=== PATIENT | female | born 1995 | race Caucasian/White ===

== ENCOUNTER 2017-05-10 13:08 | Emergency (ER) | payer MEDICAID ==
[~2017-05-10] VITALS: Ht 165.1 cm; Wt 63.0 kg
[2017-05-10] MEDS ORDERED: KETOROLAC 30MG/ML VIAL IV ONE (13:45)
[2017-05-10] MEDS ORDERED: SODIUM CHLORIDE 0.9% 1,000 ML IV ONE (13:45)
[2017-05-10] MEDS ORDERED: METOCLOPRAMIDE HCL 10MG/2ML VIAL IV ONE (13:45)
[2017-05-10] MEDS ORDERED: DIPHENHYDRAMINE 50MG/ML VIAL IV ONE (13:45)
[2017-05-10 15:51] LABS: CLARITY URINE CLOUDY (CLEAR); COLOR URINE YELLOW (YELLOW); GLUCOSE URINE NEGATIVE (NEGATIVE); KETONES URINE NEGATIVE (NEGATIVE); LEUKOCYTE ESTERASE URINE 1+ (NEGATIVE); NITRITE URINE NEGATIVE (NEGATIVE); OCCULT BLOOD URINE NEGATIVE (NEGATIVE); PH URINE 7.5 (4.5-8.0); PROTEIN URINE NEGATIVE (NEGATIVE); SPECIFIC GRAVITY URINE 1.029 (1.005-1.030)
[2017-05-10 15:53] VITALS: BP 108/62
== END 2017-05-10 16:17 | disposition home or self-care (01) ==
LOC: ER 13:35
DX: R51 Headache (principal); J45.909 Unspecified asthma, uncomplicated; R11.2 Nausea with vomiting, unspecified
CPT/HCPCS: 81001; 81025; 96361; 96374; 96375; 99284; J1200; J1885; J2765; J7030; Z7610

== ENCOUNTER 2017-05-30 13:02 | Emergency (ER) | payer MEDICAID ==
[~2017-05-30] VITALS: Ht 170.2 cm; Wt 60.0 kg
[2017-05-30 13:11] VITALS: BP 121/73
== END 2017-05-30 16:01 | disposition left against medical advice (07) ==
LOC: ER 14:47
DX: M79.602 Pain in left arm (principal); Z53.21 Procedure and treatment not carried out due to patient leaving prior to being seen by health care provider
CPT/HCPCS: 81025

== ENCOUNTER 2021-01-06 08:45 | Emergency (ER) | payer MEDICAID ==
[~2021-01-06] VITALS: Ht 165.1 cm; Wt 77.0 kg
[2021-01-06 09:14] VITALS: BP 139/81
== END 2021-01-06 11:02 | disposition home or self-care (01) ==
LOC: ER 08:45
DX: F43.22 Adjustment disorder with anxiety (principal); Z91.040 Latex allergy status
CPT/HCPCS: 93005; 99283